=== PATIENT | male | born 1980 | race Caucasian/White ===

== ENCOUNTER 2018-05-08 18:22 | Emergency (ER) | payer OTHER ==
[2018-05-08 18:35] VITALS: TEMP 98.9; BMI 37.3
[2018-05-08] MEDS ORDERED: SODIUM CHLORIDE 1,000 ML IV STA (18:42)
[2018-05-08] MEDS ORDERED: ONDANSETRON 4 MG/2 ML VIAL IVPUSH ONE (18:42)
--- NOTE | 2018-05-08 18:42 | PDOC ---
History of Present Illness - General Exam Limitations: No Limitations - History of Present Illness Initial Comments: 05/08/18 19:10 The patient is a 37 year old male, with no significant past medical history, who presents to the emergency department with, nausea and vomiting. The patient reports 3 episodes of nonbloody emesis and 1 episode of bilious emesis. He reports positional bilateral flank pain intermittently changing from his left to right side worsening on the right side with associated epigastric pain. He denies any worsening or alleviating factors. He describes his bowel movement as hard and pasty usually followed by an episode of emesis. He reports associated chills. He took an Funmi [place], without relief. He denies any recent fevers, headache or dizziness. He denies any recent diarrhea or constipation. He denies any recent chest pain or shortness of breath. He denies any recent dysuria, frequency, urgency or hematuria. Allergies: NKA Past surgical history: None reported. Social history: Social alcohol usage. Nonsmoker. Denies recreational drug use. Primary Care Physician: Dr. Barger <Fredo Ibrahim - Last Filed: 05/08/18 19:12> - General History Source: Patient <Stephani Brady Krissy - Last Filed: 05/08/18 19:22> - General Chief Complaint: Nausea/Vomiting Stated Complaint: VOMITING, BLOATING Time Seen by Provider: 05/08/18 18:26 Past History <Fredo Ibrahim - Last Filed: 05/08/18 19:12> - Past Medical History COPD: No - Suicide/Smoking/Psychosocial Hx Smoking History: Never smoked Hx Alcohol Use: Yes (SOCIAL) Drug/Substance Use Hx: No Substance Use Type: None <Stephani Brady - Last Filed: 05/08/18 19:22> - Past Medical History Allergies/Adverse Reactions: Allergies Allergy/AdvReac Type Severity Reaction Status Date / Time No Known Allergies Allergy Verified 05/08/18 18:24 Home Medications: Ambulatory Orders Dextroamphetamine/Amphetamine [Adderall Xr 15 mg Capsule] 15 mg PO DAILY Review of Systems - Review of Systems Comments:: 05/08/18 19:10 GENERAL/CONSTITUTIONAL: No fever.. No weakness. no sweats. +chills HEAD, EYES, EARS, NOSE AND THROAT: No sore throat or mouth pain. No difficulty swallowing.. No congestion. CARDIOVASCULAR: No chest pain RESPIRATORY: No SOB, cough or congestion GASTROINTESTINAL +Nausea and vomiting. +Epigastric pain. No diarrhea or constipation. No bloody stools. GENITOURINARY: +Bilateral flank pain. No hematuria, dysuria, frequency, urgency or other changes. MUSCULOSKELETAL: No joint or muscle swelling or pain. No neck or back pain. SKIN: No rash or changes in skin color or lesions. NEUROLOGIC: No headache, vertigo, loss of consciousness, or change in strength/ sensation. No gait instability. ALLERGIC/IMMUNOLOGIC: No allergies All other systems reviewed and negative, or as documented in HPI. <Fredo Ibrahim - Last Filed: 05/08/18 19:12> *Physical Exam - Vital Signs Last Vital Signs Temp Pulse Resp BP Pulse Ox 98.9 F 69 18 164/107 97 05/08/18 18:24 05/08/18 18:45 05/08/18 18:45 05/08/18 18:45 05/08/18 18:45 - Physical Exam Comments: 05/08/18 19:10 General: Well appearing, awake and alert, NAD. HEENT: NCAT, PERRL, EOMI, clear conjunctiva, anicteric, moist mucus membranes, clear oropharynx, no oral lesions.. Neck: neck supple, FROM Resp: CTAB, normal and even respirations, no respiratory distress CVS: RRR, 2+ peripheral pulses throughout, no peripheral edema Abdomen: soft, obese, +epigastric and bilateral flankTTP. +Harper's sign. no peritoneal signs. Back: nontender, normal inspection and ROM MSK: no edema, OG x4, ROM intact. No clubbing or cyanosis. normal bulk and tone. Neuro: alert, oriented appropriately Skin: warm and well perfused, cap refill <2 sec, normal color; no rash <Fredo Ibrahim - Last Filed: 05/08/18 19:12> - Vital Signs Last Vital Signs Temp Pulse Resp BP Pulse Ox 98.9 F 68 18 163/105 97 05/08/18 18:24 05/08/18 18:24 05/08/18 18:24 05/08/18 18:24 05/08/18 18:24 <Stephani Brady - Last Filed: 05/08/18 19:22> ED Treatment Course - Medications Given in the ED: ED Medications Discontinued Medications Generic Name Dose Route Start Last Admin Trade Name Hel[place] PRN Reason Stop Dose Admin Al Hydroxide/Mg Hydroxide 30 ml 05/08/18 18:45 05/08/18 19:00 Mylanta Oral Suspension - PO 05/08/18 18:46 30 ml ONCE ONE Administration Ondansetron HCl 4 mg 05/08/18 18:42 05/08/18 18:50 Zofran Injection IVPUSH 05/08/18 18:43 4 mg ONCE ONE Administration <AnibalFredo chawla - Last Filed: 05/08/18 19:12> - LABORATORY CBC & Chemistry Diagram: 05/08/18 18:45 05/08/18 18:45 <Stephani Brady - Last Filed: 05/08/18 19:22> Medical Decision Making - Medical Decision Making 05/08/18 19:00 A portion of this note was documented by scribe services under my direction. I have reviewed the details of the note, within reason, and agree with the documentation with the following case summary and management plan written by me. Tony He 37 YOM with no medical history presenting with n/v x 4 episodes today a/w epigastric RUQ and flank pain (worse on right), present w/ constipation x 4 days but worse today. no precipitating factors. no fevers or chills; no abdominal surgeries. DDx abdominal pain: GERD, PUD, esophageal spasm, pancreatitis, hepatitis, constipation, colitis, gastroenteritis, cholecystitis, renal colic, hernia, appendicitis, diverticulitis; clinically doubt appy or diverticulitis, as no lower abdominal tenderness. also doubt /testicular pathology as no lower sx. Vital signs wnl, afebrile. Well appearing, mildly hypertensive, likely from n/v/ abd cramps. Plan: CBC, CMP, lipase, UA. RUQ and Renal US to r/o biliary pathology and hydro/ renal colic respectively. Given dose of pepcid, IVF and maalox, low dose morphine. Continue to monitor closely. discussed plan with pt for workup Signed out to Dr. Nassef pending labs, reeval and imaging results 05/08/18 19:17 05/08/18 19:19 05/08/18 19:22 <Stephani Brady - Last Filed: 05/08/18 19:22> *DC/Admit/Observation/Transfer - Attestations Scribe Attestion: 05/08/18 19:11 Documentation prepared by Fredo Ibrahim, acting as medical hospital sales for Stephani Brady MD. <Fredo Ibrahim - Last Filed: 05/08/18 19:12> <Stephani Brady - Last Filed: 05/08/18 19:22> Diagnosis at time of Disposition: Abdominal pain Qualifiers: Abdominal location: upper abdomen, unspecified Qualified Code(s): R10.10 - Upper abdominal pain, unspecified - Discharge Dispostion Condition at time of disposition: Good - Referrals Referrals: Karuna Barger [Primary Care Provider] - - Patient Instructions - Post Discharge Activity
[2018-05-08] MEDS ORDERED: FAMOTIDINE 20 MG/50 ML IVPB 20 MG/50 ML MG IVPB ONE ×2 (18:45→18:54)
[2018-05-08] MEDS ORDERED: MAG HYDROX/AL HYDROX/SIMETH 30 ML UNIT-DOSE CUP PO ONE ×2 (18:45→22:37)
[2018-05-08] MEDS ORDERED: MAG HYDROX/AL HYDROX/SIMETH 30 ML UNIT-DOSE CUP ONE ×2 (18:54→22:47)
[2018-05-08] MEDS ORDERED: ONDANSETRON 4 MG/2 ML VIAL ONE (18:54)
[2018-05-08] MEDS ORDERED: morphine CARPU-JECT 4 MG/1 ML DISP.SYRIN IVPUSH ONE (19:13)
[2018-05-08 19:17] LABS: BASO % 0.2 % (0-2.0); EOS % 0.2 % (0-4.5); HEMOGLOBIN 16.5 GM/dl (11.7-16.9); LYMPH % 14.8 % (8-40); MCH 30.1 pg (25.7-33.7); MCHC 33.6 g/dl (32.0-35.9); MEAN CELL VOLUME 89.5 fl (80-96); MEAN PLT VOLUME 9.9 fl (7.5-11.1); MONO % 6.4 % (3.8-10.2); NEUT % 78.4 % (42.8-82.8); PLATELET COUNT 254 K/MM3 (134-434); RBC 5.47 M/mm3 (4.00-5.60); RDW 12.1 % (11.9-15.9); WHITE BLOOD COUNT 9.8 K/mm3 (4.0-10.8)
[2018-05-08] MEDS ORDERED: morphine SULFATE 4 MG/ML VIAL ONE (19:18)
[2018-05-08 19:30] LABS: ALBUMIN 4.4 g/dl (3.5-5.0); ALK PHOS 63 U/L (32-92); ANION GAP 7 (8-16); BILIRUBIN,TOTAL 0.5 mg/dl (0.2-1.0); BLOOD UREA NITROGEN 8 mg/dl (7-18); CALCIUM 9.3 mg/dl (8.4-10.2); CHLORIDE 101 mmol/L (98-107); CO2 27 mmol/L (22-28); CREATININE 0.9 mg/dl (0.6-1.3); GLUCOSE,RANDOM 104 mg/dl (74-106); POTASSIUM 4.2 mmol/L (3.5-5.1); SGOT/AST 32 U/L (10-42); SGPT/ALT 44 U/L (10-40); SODIUM 135 mmol/L (136-145); TOT PROT 7.9 g/dl (6.4-8.3)
[2018-05-08 20:13] LABS: PH,URINE 7.5 (4.5-8); URINE APPEARANCE Clear; URINE BILIRUBIN Negative (NEGATIVE); URINE COLOR Yellow; URINE GLUCOSE (UA) Negative (NEGATIVE); URINE KETONE Negative (NEGATIVE); URINE LEUK ESTERASE Negative (NEGATIVE); URINE NITRITE Negative (NEGATIVE); URINE PROTEIN 1+ (NEGATIVE)
[2018-05-08 20:25] LABS: AMORP PHOS MODERATE /hpf (NONE SEEN); URINE BACTERIA FEW /hpf (NEGATIVE); URINE RBC 0-2 /hpf (0-3); URINE WBC 0-1 (0-2)
[2018-05-08 21:04] LABS: LIPASE 158 U/L (73-393)
[2018-05-08 22:29] VITALS: BP 136/92; PULSE 67
--- NOTE | 2018-05-08 22:41 | PDOC ---
*Physical Exam - Vital Signs Last Vital Signs Temp Pulse Resp BP Pulse Ox 98.9 F 67 18 136/92 100 05/08/18 18:24 05/08/18 22:28 05/08/18 22:28 05/08/18 22:28 05/08/18 22:28 ED Treatment Course - LABORATORY CBC & Chemistry Diagram: 05/08/18 18:45 05/08/18 18:45 - ADDITIONAL ORDERS Additional order review: Laboratory Results 05/08/18 05/08/18 19:57 18:45 Sodium 135 L Potassium 4.2 Chloride 101 Carbon Dioxide 27 Anion Gap 7 L BUN 8 Creatinine 0.9 Creat Clearance w eGFR > 60 Random Glucose 104 Calcium 9.3 Total Bilirubin 0.5 AST 32 ALT 44 H Alkaline Phosphatase 63 Total Protein 7.9 Albumin 4.4 Lipase 158 Urine Color Yellow Urine Appearance Clear Urine pH 7.5 Ur Specific [place] 1.020 Urine Protein 1+ H Urine Glucose (UA) Negative Urine Ketones Negative Urine Blood Negative Urine Nitrite Negative Urine Bilirubin Negative Urine Urobilinogen 1.0 Ur Leukocyte Esterase Negative Urine RBC 0-2 Urine WBC 0-1 Amorphous Phosphates Moderate Urine Bacteria Few 05/08/18 18:45 RBC 5.47 MCV 89.5 MCHC 33.6 RDW 12.1 MPV 9.9 Neutrophils % 78.4 Lymphocytes % 14.8 Monocytes % 6.4 Eosinophils % 0.2 Basophils % 0.2 - RADIOLOGY Radiology Studies Ordered: Category Date Time Status ABDOMEN US [US] Stat Ultrasound 05/08/18 19:52 Completed - Medications Given in the ED: ED Medications Discontinued Medications Generic Name Dose Route Start Last Admin Trade Name Helena PRN Reason Stop Dose Admin Al Hydroxide/Mg Hydroxide 30 ml 05/08/18 18:45 05/08/18 19:00 Mylanta Oral Suspension - PO 05/08/18 18:46 30 ml ONCE ONE Administration Sodium Chloride 1,000 mls @ 1,000 mls/hr 05/08/18 18:42 05/08/18 18:45 Normal Saline - IV 05/08/18 19:41 1,000 mls/hr ASDIR STA Administration Famotidine/Sodium Chloride 20 mg in 50 mls @ 100 mls/hr 05/08/18 18:45 18:55 Pepcid 20 Mg Premixed Ivpb - IVPB 05/08/18 19:14 100 mls/hr ONCE ONE Administration Morphine Sulfate 4 mg 05/08/18 19:13 05/08/18 19:20 Morphine Injection - IVPUSH 05/08/18 19:14 4 mg ONCE ONE Administration Ondansetron HCl 4 mg 05/08/18 18:42 05/08/18 18:50 Zofran Injection IVPUSH 05/08/18 18:43 4 mg ONCE ONE Administration Medical Decision Making - Medical Decision Making 05/08/18 22:37 Care received at 1900 Briefly, patient presents to the emergency Department with epigastric pain associated with nausea, vomiting as well as bilateral flank pain. Vitals initially with hypertension, however blood pressure has improved without intervention. Workup thus far reveals a very mildly elevated LFTs and ultrasound with a normal gallbladder and fatty liver. On reevaluation, abdominal exam is benign, patient has no tenderness palpation. Patient is tolerating PO. Complains of some persistent burning epigastric pain, given Maalox. Likey gastroenteritis vs gastritis. Advised patient to drink plenty of fluids and follow up with his primary doctor in 1-2 days. Patient in agreement with plan. I discussed the physical exam findings, ancillary test results and final diagnoses with the patient. I answered all of the patient's questions. The patient was satisfied with the care received and felt comfortable with the discharge plan and treatment plan. The patient will call their primary care physician within 24 hours to arrange follow-up and will return to the Emergency Department with any new, persistent or worsening symptoms. *DC/Admit/Observation/Transfer Diagnosis at time of Disposition: Abdominal pain Qualifiers: Abdominal location: upper abdomen, unspecified Qualified Code(s): R10.10 - Upper abdominal pain, unspecified - Discharge Dispostion Disposition: HOME Condition at time of disposition: Good Decision to Admit order: No - Referrals Referrals: Karuna Barger [Primary Care Provider] - - Patient Instructions Printed Discharge Instructions: DI for Nausea -- Adult, DI for Vomiting -- Adult Additional Instructions: As discussed, follow-up with her primary doctor in 1-2 days. Take Zofran as needed for nausea. Drink plenty of fluids and stay hydrated. Return to the emergency department if you have any new, worsening or concerning symptoms. - Post Discharge Activity - Attestations Physician Attestion: 07/25/18 22:41 I, Dr. Yesi Carlson MD, attest that this document has been prepared under my direction and personally reviewed by me in its entirety. I further attest, that it accurately reflects all work, treatment, procedures and medical decision -making performed by me.
== END 2018-05-08 22:55 | disposition home or self-care (01) ==
LOC: FER 18:22
PROC: 3E033GC Introduction of Other Therapeutic Substance into Peripheral Vein, Percutaneous Approach (ICD-10-PCS; principal; 2018-05-08)
PROC: 3E033NZ Introduction of Analgesics, Hypnotics, Sedatives into Peripheral Vein, Percutaneous Approach (ICD-10-PCS; 2018-05-08)
PROC: 3E0337Z Introduction of Electrolytic and Water Balance Substance into Peripheral Vein, Percutaneous Approach (ICD-10-PCS; 2018-05-08)
DX: R10.10 Upper abdominal pain, unspecified (principal)
CPT/HCPCS: 36415; 76700-TC; 80053; 81003; 81015; 83690; 85025; 99283-25; J7030

== ENCOUNTER 2019-11-17 07:39 | Emergency (ER) | payer OTHER ==
[2019-11-17 07:50] VITALS: BP 146/95; PULSE 87; TEMP 98.3; BMI 35.6
--- NOTE | 2019-11-17 08:03 | PDOC ---
History of Present Illness - General Chief Complaint: Pain Stated Complaint: RIGHT SIDED BACK PAIN BLOATED Time Seen by Provider: 11/17/19 07:49 - History of Present Illness Initial Comments: 11/17/19 08:41 Chief complaint: Abdominal pain HPI: Patient awoke in the middle of the night with right upper quadrant abdominal pain radiating around the lower rib cage to the back. There was associated nausea. He vomited once, undigested food, no blood. Had a normal bowel movement. No blood or melena. Continues to have right upper quadrant pain and nausea. Review of systems: Denies fever/chills, headache, URI symptoms, sore throat, cough, chest pain, shortness of breath, hematemesis, melena, bloody stool, visual or focal neurologic symptoms, unsteadiness of gait, lightheadedness, dizziness, vertigo. Remainder of systems reviewed and negative Past medical history: Frequent dyspepsia, for which he takes Mylanta. Treated for this several times in the ER. Gallbladder disease was considered, but ultrasounds have been negative. Obesity. Otherwise no medical or surgical problems and no medications except for Mylanta. Social history: Non-smoker, occasional social alcohol, had 3 beers last night, no nonprescription drugs. 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 Family history: Reviewed and noncontributory Physical exam: Alert and oriented moderately obese mild to moderate right upper quadrant pain mild nausea, no retching. Afebrile, vital signs normal No pallor or icterus. HEENT normal Neck supple without bruit mass or nodes Lungs clear, full breath sounds bilaterally. CV S1-S2 normal without murmur rub or gallop pulses full and symmetric no JVD or edema no bruits regular rate Abdomen nondistended. Bowel sounds normal. Soft without mass or organomegaly. There is mild to moderate tenderness in the right upper quadrant and the suggestion of a positive Harper sign. There is no guarding or rebound. There is no CVAT. There is no lower quadrant tenderness. Extremities no CCE Skin clear, no rash, adequate turgor and wet mucous membranes Neurological intact Impression: Possibilities include biliary colic, gastroenteritis, dyspepsia/ gastritis. Less likely kidney stone, pancreatitis, intestinal obstruction, musculoskeletal. Plan: CBC, chemistries, lipase, urinalysis, symptomatic treatment and observation. Further evaluation and treatment depending on results. Past History - Past Medical History Allergies/Adverse Reactions: Allergies Allergy/AdvReac Type Severity Reaction Status Date / Time No Known Allergies Allergy Verified 11/17/19 07:41 Home Medications: Ambulatory Orders NK [No Known Home Medication] 11/17/19 COPD: No HTN: Yes (NO MEDS) - Psycho Social/Smoking Cessation Hx Smoking History: Never smoked Information on smoking cessation initiated: No Hx Alcohol Use: Yes (SOCIAL) Drug/Substance Use Hx: No Substance Use Type: None *Physical Exam - Vital Signs Last Vital Signs Temp Pulse Resp BP Pulse Ox 98.3 F 87 16 146/95 98 11/17/19 07:40 11/17/19 07:40 11/17/19 07:40 11/17/19 07:40 11/17/19 07:40 ED Treatment Course - LABORATORY CBC & Chemistry Diagram: 11/17/19 08:15 11/17/19 08:15 Medical Decision Making - Medical Decision Making 11/17/19 11:20 Ultrasound does not show gallstones. There is mild thickening of the gallbladder wall but without signs of inflammation. Labs are normal. No elevation of bilirubin or liver enzymes. Lipase is normal. Most likely diagnosis is aggravation of dyspepsia/gastritis. Back pain may be musculoskeletal, since the patient is overweight and the pain seems to be more prominent with movement of the torso. Advised to continue Mylanta 3-4 times daily for approximately 1 week. If symptoms persist, consult city jailer to consider endoscopy. Patient understands and agrees. Also rest and heat for the back, along with weight loss and exercise. Fully ambulatory, pain resolved at discharge to follow-up as directed. Discharge - Discharge Information Problems reviewed: Yes Clinical Impression/Diagnosis: Gastritis Qualifiers: Gastritis type: unspecified gastritis Chronicity: chronic Gastritis bleeding: without bleeding Qualified Code(s): K29.50 - Unspecified chronic gastritis without bleeding Condition: Improved Disposition: HOME - Admission No - Follow up/Referral Referrals: Rehan Brown MD [Staff Physician] - - Patient Discharge Instructions Patient Printed Discharge Instructions: DI for Dyspepsia, Thoracic Back Pain Additional Instructions: Weight loss. Avoid fatty or spicy foods, and large meals. Exercise. Mylanta 3 -4 times daily before meals for approximately 1 week. In case the back pain is musculoskeletal, try heat, massage, and Tylenol. Consider referral to city jailer for further evaluation and treatment if symptoms persist. This might involve upper endoscopy. Return to ER if symptoms worsen. - Post Discharge Activity Work/Back to School Note: Back to Work
[2019-11-17] MEDS ORDERED: SODIUM CHLORIDE 1,000 ML IV STA (08:04)
[2019-11-17] MEDS ORDERED: ONDANSETRON 4 MG/2 ML VIAL IVPB ONE (08:04)
[2019-11-17] MEDS ORDERED: FAMOTIDINE 20 MG/50 ML IVPB 20 MG/50 ML MG IVPB ONE ×2 (08:04→08:18)
[2019-11-17] MEDS ORDERED: ONDANSETRON 4 MG/2 ML VIAL ONE (08:18)
[2019-11-17 08:42] LABS: BASO % 0.3 % (0-2.0); EOS % 1.3 % (0-4.5); HEMATOCRIT 43.5 % (35.4-49); HEMOGLOBIN 14.4 GM/dl (11.7-16.9); LYMPH % 22.9 % (8-40); MCH 29.4 pg (25.7-33.7); MCHC 33.1 g/dl (32.0-35.9); MEAN CELL VOLUME 88.8 fl (80-96); MEAN PLT VOLUME 10.6 fl (7.5-11.1); MONO % 7.2 % (3.8-10.2); NEUT % 68.3 % (42.8-82.8); PLATELET COUNT 248 K/MM3 (134-434); WHITE BLOOD COUNT 8.7 K/mm3 (4.0-10.8)
[2019-11-17 08:46] LABS: ALBUMIN 3.7 g/dl (3.4-5.0); BILIRUBIN,TOTAL 0.5 mg/dl (0.2-1); CALCIUM 8.9 mg/dl (8.5-10); CREATININE 0.8 mg/dl (0.55-1.3); POTASSIUM 4.2 mmol/L (3.5-5.1); TOT PROT 6.7 g/dl (6.4-8.2)
[2019-11-17 09:32] LABS: EPITHELIAL CELLS RARE /hpf
== END 2019-11-17 11:34 | disposition home or self-care (01) ==
LOC: FER 07:39
PROC: 3E033GC Introduction of Other Therapeutic Substance into Peripheral Vein, Percutaneous Approach (ICD-10-PCS; principal; 2019-11-17)
DX: K29.50 Unspecified chronic gastritis without bleeding (principal); I10 Essential (primary) hypertension
CPT/HCPCS: 36415; 76705-TC; 80053; 81003; 81015; 83690; 85025; 99283-25; J7030

== ENCOUNTER 2020-10-28 13:13 | Inpatient (IN) | payer OTHER ==
[2020-10-28] MEDS ORDERED: DEXAMETHASONE SOD PHOSPHATE 10 MG/1 ML VIAL IVPUSH ONE (13:54)
[2020-10-28 14:07] LABS: ACTIVATED PTT 27.2 SECONDS (25.2-36.5)
[2020-10-28 14:10] LABS: ALBUMIN 3.5 g/dl (3.4-5.0); BILIRUBIN,DIRECT 0.2 mg/dL (0.0-0.2); BILIRUBIN,TOTAL 1.1 mg/dl (0.2-1); CALCIUM 8.3 mg/dl (8.5-10); CREATININE 1.1 mg/dl (0.55-1.3); TOT PROT 7.1 g/dl (6.4-8.2)
[2020-10-28 14:11] LABS: INR 1.28 (0.82-1.09); PROTHROMBIN TIME (PATIENT) 14.1 SEC (10.2-13.0)
[2020-10-28] MEDS ORDERED: DEXAMETHASONE SOD PHOSPHATE 10 MG/1 ML VIAL ONE (14:20)
[2020-10-28] MEDS ORDERED: LACTATED RINGERS SOLUTION 1000 ML INFUS.BAG IV STA ×2 (14:37→17:58)
[2020-10-28] MEDS ORDERED: FAMOTIDINE 20 MG/50 ML IVPB 20 MG/50 ML MG IVPB ONE ×2 (14:37→16:10)
[2020-10-28] MEDS ORDERED: ONDANSETRON 4 MG/2 ML VIAL IVPUSH ONE (14:38)
[2020-10-28 14:40] LABS: VENOUS BASE EXCESS 2.4 mmol/L (-2-2); VENOUS PCO2 41.4 mmHg (38-52); VENOUS PH 7.431 (7.310-7.410)
[2020-10-28 15:34] LABS: EPITHELIAL CELLS FEW /hpf
[2020-10-28] MEDS ORDERED: ONDANSETRON 4 MG/2 ML VIAL ONE (16:11)
[2020-10-28 16:23] LABS: BASO % 3.5 % (0-2.0); EOS % 0.1 % (0-4.5); HEMATOCRIT 45.3 % (35.4-49); HEMOGLOBIN 15.4 GM/dl (11.7-16.9); LYMPH % 26.3 % (8-40); MCH 29.6 pg (25.7-33.7); MEAN CELL VOLUME 87.1 fl (80-96); MEAN PLT VOLUME 9.9 fl (7.5-11.1); MONO % 8.4 % (3.8-10.2); NEUT % 61.7 % (42.8-82.8); PLATELET COUNT 196 K/MM3 (134-434); RDW 12.6 % (11.9-15.9); WHITE BLOOD COUNT 6.5 K/mm3 (4.0-10.8)
[2020-10-28] MEDS ORDERED: SODIUM CHLORIDE 0.9% 500 ML INFUS.BAG IV ONE (17:59)
[2020-10-28] MEDS ORDERED: ACETAMINOPHEN INJECTION 100 ML IVPB ONE (18:00)
[2020-10-28] MEDS: ACETAMINOPHEN 1000 MG/100 ML VIAL (NON FORMULARY) IVPB PRN (18:00)
[2020-10-29 08:14] LABS: BASO % 0.1 % (0-2.0); HEMOGLOBIN 13.5 GM/dL (11.7-16.9); LYMPH % 30.3 % (8-40); MCH 29.2 pg (25.7-33.7); MEAN CELL VOLUME 88.7 fl (80-96); MEAN PLT VOLUME 9.9 fl (7.5-11.1); MONO % 10.2 % (3.8-10.2); NEUT % 59.4 % (42.8-82.8); PLATELET COUNT 195 K/MM3 (134-434); RBC 4.62 M/mm3 (4.00-5.60); RDW 13.9 % (11.9-15.9); WHITE BLOOD COUNT 3.5 K/mm3 (4.0-10.0)
[2020-10-29 08:57] LABS: POTASSIUM 4.4 mmol/L (3.5-5.1)
[2020-10-29 09:11] LABS: ALBUMIN 2.8 g/dl (3.4-5.0)
[2020-10-29 09:14] LABS: BILIRUBIN,TOTAL 0.9 mg/dL (0.2-1); BLOOD UREA NITROGEN 12.6 mg/dL (7-18); CREATININE 0.8 mg/dL (0.55-1.3); MAGNESIUM 2.3 mg/dL (1.8-2.4); PHOSPHOROUS 3.3 mg/dL (2.5-4.9); TOT PROT 6.1 g/dl (6.4-8.2)
[2020-10-29] MEDS ORDERED: cefTRIAXone SODIUM 1 GM VIAL ONE (09:53)
[2020-10-29] MEDS ORDERED: DEXTROSE 5%-WATER - 50 ML IVPB ONE (09:53)
[2020-10-29] MEDS: CEFTRIAXONE 1 GM in DEXTROSE 5%-WATER - 50 ML IVPB SCH (09:58)
[2020-10-29] MEDS: ACETAMINOPHEN 1000 MG/100 ML VIAL (NON FORMULARY) IVPB PRN ×2 (09:58→20:23)
[2020-10-29] MEDS ORDERED: ENOXAPARIN NA (PORCINE) 40 MG/0.4 ML DISP.SYRIN SQ SCH (10:00)
[2020-10-29] MEDS: ENOXAPARIN NA (PORCINE) 100 MG/1 ML DISP.SYRIN SQ SCH ×2 (10:14→21:46)
[2020-10-29] MEDS: LACTATED RINGERS SOLUTION 1,000 ML/1,000 ML INFUS.BAG IV SCH ×2 (10:15→21:47)
[2020-10-29] MEDS ORDERED: CHOLECALCIFEROL (VIT D3) 1,000 UNIT (25 MCG) TABLET PO ONE (13:03)
[2020-10-29] MEDS: FLU VACCINE (FLULAVAL) PF 60 MCG/0.5 ML SYRINGE 2020-2021 IM ONE ×2 (13:42→13:54)
[2020-10-29] MEDS: ZINC SULFATE 220 MG CAPSULE (FP) PO SCH (13:44)
[2020-10-29] MEDS: ASCORBIC ACID 500 MG TABLET (FP) PO SCH ×2 (13:44→21:46)
[2020-10-29] MEDS: guaiFENesin 200 MG/10 ML 10 ML UNIT-DOSE CUPS PO PRN ×2 (13:56→21:48)
[2020-10-29] MEDS ORDERED: DEXAMETHASONE SOD PHOSPHATE 10 MG/1 ML VIAL IVPUSH ONE (19:08)
[2020-10-29] MEDS: FAMOTIDINE 20 MG TABLET PO SCH (21:46)
[2020-10-30] MEDS: guaiFENesin 200 MG/10 ML 10 ML UNIT-DOSE CUPS PO PRN ×2 (07:01→11:02)
[2020-10-30 08:54] LABS: HEMATOCRIT 40.3 % (35.4-49); HEMOGLOBIN 13.3 GM/dL (11.7-16.9); MCH 29.4 pg (25.7-33.7); MCHC 32.9 g/dl (32.0-35.9); MEAN CELL VOLUME 89.4 fl (80-96); MEAN PLT VOLUME 10.6 fl (7.5-11.1); PLATELET COUNT 199 K/MM3 (134-434); RBC 4.51 M/mm3 (4.00-5.60); WHITE BLOOD COUNT 6.3 K/mm3 (4.0-10.0)
[2020-10-30 09:08] LABS: POTASSIUM 4.3 mmol/L (3.5-5.1)
[2020-10-30 09:10] LABS: ALBUMIN 2.8 g/dl (3.4-5.0); BLOOD UREA NITROGEN 13.8 mg/dL (7-18); MAGNESIUM 2.3 mg/dL (1.8-2.4)
[2020-10-30 09:12] LABS: BILIRUBIN,TOTAL 0.8 mg/dL (0.2-1); CREATININE 0.9 mg/dL (0.55-1.3); PHOSPHOROUS 4.3 mg/dL (2.5-4.9); TOT PROT 6.3 g/dl (6.4-8.2)
[2020-10-30] MEDS ORDERED: cefTRIAXone SODIUM 1 GM VIAL ONE (09:35)
[2020-10-30] MEDS ORDERED: DEXTROSE 5%-WATER - 50 ML IVPB ONE (09:35)
[2020-10-30] MEDS: FAMOTIDINE 20 MG TABLET PO SCH ×2 (09:50→21:30)
[2020-10-30] MEDS: ASCORBIC ACID 500 MG TABLET (FP) PO SCH ×2 (09:50→21:30)
[2020-10-30] MEDS: ZINC SULFATE 220 MG CAPSULE (FP) PO SCH (09:50)
[2020-10-30] MEDS: CEFTRIAXONE 1 GM in DEXTROSE 5%-WATER - 50 ML IVPB SCH (09:50)
[2020-10-30] MEDS: ENOXAPARIN NA (PORCINE) 100 MG/1 ML DISP.SYRIN SQ SCH (09:50)
[2020-10-30] MEDS: SODIUM CHLORIDE 1,000 ML IV SCH (09:51)
[2020-10-30 10:11] LABS: ERYTHROCYTE SEDIMENTATION RATE 49 mm/hr (0-10)
[2020-10-30] MEDS: DEXAMETHASONE SOD PHOSPHATE 4 MG/1 ML VIAL IVPUSH SCH (14:41)
[2020-10-30] MEDS: ACETAMINOPHEN 1000 MG/100 ML VIAL (NON FORMULARY) IVPB PRN (14:41)
[2020-10-30] MEDS: guaiFENesin/CODEINE 10 ML UNIT-DOSE CUPS PO PRN (20:14)
[2020-10-30] MEDS: ENOXAPARIN NA (PORCINE) 80 MG/0.8 ML DISP.SYRIN SQ SCH (21:29)
[2020-10-30] MEDS ORDERED: MELATONIN 5 MG TABLETS PO ONE (23:51)
[2020-10-31] MEDS: SODIUM CHLORIDE 1,000 ML IV SCH ×2 (06:32→10:10)
[2020-10-31 07:41] LABS: BASO % 0.1 % (0-2.0); HEMATOCRIT 38.7 % (35.4-49); LYMPH % 9.9 % (8-40); MCH 29.5 pg (25.7-33.7); MCHC 33.5 g/dl (32.0-35.9); MEAN CELL VOLUME 88.2 fl (80-96); MEAN PLT VOLUME 9.9 fl (7.5-11.1); MONO % 4.4 % (3.8-10.2); NEUT % 85.6 % (42.8-82.8); PLATELET COUNT 219 K/MM3 (134-434); RBC 4.39 M/mm3 (4.00-5.60); RDW 13.7 % (11.9-15.9); WHITE BLOOD COUNT 8.2 K/mm3 (4.0-10.0)
[2020-10-31 07:56] LABS: POTASSIUM 4.8 mmol/L (3.5-5.1)
[2020-10-31 07:58] LABS: ALBUMIN 2.6 g/dl (3.4-5.0); CALCIUM 8.3 mg/dL (8.5-10.1)
[2020-10-31 07:59] LABS: BLOOD UREA NITROGEN 13.3 mg/dL (7-18)
[2020-10-31 08:01] LABS: CREATININE 0.8 mg/dL (0.55-1.3)
[2020-10-31 08:03] LABS: BILIRUBIN,TOTAL 0.8 mg/dL (0.2-1)
[2020-10-31] MEDS ORDERED: cefTRIAXone SODIUM 1 GM VIAL ONE (09:13)
[2020-10-31] MEDS ORDERED: DEXTROSE 5%-WATER - 50 ML IVPB ONE (09:13)
[2020-10-31] MEDS: FAMOTIDINE 20 MG TABLET PO SCH ×2 (10:09→22:35)
[2020-10-31] MEDS: ZINC SULFATE 220 MG CAPSULE (FP) PO SCH (10:09)
[2020-10-31] MEDS: DEXAMETHASONE SOD PHOSPHATE 4 MG/1 ML VIAL IVPUSH SCH (10:09)
[2020-10-31] MEDS: ASCORBIC ACID 500 MG TABLET (FP) PO SCH ×2 (10:09→22:33)
[2020-10-31] MEDS: CEFTRIAXONE 1 GM in DEXTROSE 5%-WATER - 50 ML IVPB SCH (10:09)
[2020-10-31] MEDS: ENOXAPARIN NA (PORCINE) 80 MG/0.8 ML DISP.SYRIN SQ SCH ×2 (10:09→22:32)
[2020-10-31] MEDS: guaiFENesin/CODEINE 10 ML UNIT-DOSE CUPS PO PRN (10:11)
[2020-10-31] MEDS: AZITHROMYCIN IVPB 500 MG/250 ML BAG IVPB SCH (11:21)
[2020-10-31] MEDS ORDERED: guaiFENesin/CODEINE 10 ML UNIT-DOSE CUPS PO PRN (12:03)
[2020-10-31] MEDS: guaiFENesin/CODEINE 5 ML UNIT-DOSE CUPS PO SCH ×2 (15:34→17:48)
[2020-10-31] MEDS ORDERED: FUROSEMIDE 40 MG/4 ML INJECTABLE VIAL IVPUSH ONE (15:42)
[2020-10-31] MEDS: MORPHINE SULFATE 2 MG/ML VIAL IVPUSH PRN (16:48)
[2020-10-31] MEDS ORDERED: guaiFENesin/CODEINE 10 ML UNIT-DOSE CUPS PO SCH (22:00)
[2020-11-01] MEDS: guaiFENesin/CODEINE 5 ML UNIT-DOSE CUPS PO SCH ×2 (06:00→13:05)
[2020-11-01] MEDS ORDERED: cefTRIAXone SODIUM 1 GM VIAL ONE (08:20)
[2020-11-01] MEDS ORDERED: DEXTROSE 5%-WATER - 50 ML IVPB ONE (08:20)
[2020-11-01 08:35] LABS: BASO % 0.5 % (0-2.0); EOS % 0.1 % (0-4.5); HEMATOCRIT 40.4 % (35.4-49); HEMOGLOBIN 13.6 GM/dL (11.7-16.9); LYMPH % 17.6 % (8-40); MCH 29.8 pg (25.7-33.7); MCHC 33.6 g/dl (32.0-35.9); MEAN CELL VOLUME 88.6 fl (80-96); MONO % 3.6 % (3.8-10.2); NEUT % 78.2 % (42.8-82.8); PLATELET COUNT 306 K/MM3 (134-434); RBC 4.56 M/mm3 (4.00-5.60); RDW 13.6 % (11.9-15.9); WHITE BLOOD COUNT 13.3 K/mm3 (4.0-10.0)
[2020-11-01 08:51] LABS: POTASSIUM 4.4 mmol/L (3.5-5.1)
[2020-11-01 08:57] LABS: ALBUMIN 2.9 g/dl (3.4-5.0); CALCIUM 8.6 mg/dL (8.5-10.1)
[2020-11-01 08:58] LABS: BLOOD UREA NITROGEN 16.9 mg/dL (7-18)
[2020-11-01 09:01] LABS: BILIRUBIN,TOTAL 0.8 mg/dL (0.2-1); CREATININE 0.9 mg/dL (0.55-1.3); TOT PROT 6.9 g/dl (6.4-8.2)
[2020-11-01] MEDS: ASCORBIC ACID 500 MG TABLET (FP) PO SCH ×2 (10:17→21:31)
[2020-11-01] MEDS: DEXAMETHASONE SOD PHOSPHATE 4 MG/1 ML VIAL IVPUSH SCH (10:17)
[2020-11-01] MEDS: ENOXAPARIN NA (PORCINE) 80 MG/0.8 ML DISP.SYRIN SQ SCH ×2 (10:17→21:32)
[2020-11-01] MEDS: AZITHROMYCIN IVPB 500 MG/250 ML BAG IVPB SCH (10:18)
[2020-11-01] MEDS: FAMOTIDINE 20 MG TABLET PO SCH ×2 (10:18→21:31)
[2020-11-01] MEDS: CEFTRIAXONE 1 GM in DEXTROSE 5%-WATER - 50 ML IVPB SCH (10:18)
[2020-11-01] MEDS: ZINC SULFATE 220 MG CAPSULE (FP) PO SCH (10:18)
[2020-11-01] MEDS ORDERED: FUROSEMIDE 40 MG/4 ML INJECTABLE VIAL IVPUSH ONE (10:39)
[2020-11-01] MEDS: MORPHINE SULFATE 2 MG/ML VIAL IVPUSH PRN ×2 (10:40→23:03)
[2020-11-01] MEDS ORDERED: guaiFENesin/CODEINE 10 ML UNIT-DOSE CUPS PO ONE (20:24)
[2020-11-01 22:19] LABS: ARTERIAL BLD GAS O2 SATURATION 95.8 mmHg (95-98); ARTERIAL BLOOD GAS BASE EXCESS -0.3 mmol/L (-2-2); ARTERIAL BLOOD GAS PO2 73.4 mmHg (80-100); ARTERIAL BLOOD GAS pH 7.478 (7.350-7.450)
[2020-11-01 22:21] LABS: ALLENS TEST POSITIVE
[2020-11-02] MEDS ORDERED: guaiFENesin/CODEINE 10 ML UNIT-DOSE CUPS PO ONE (01:25)
[2020-11-02 07:39] LABS: HEMATOCRIT 39.6 % (35.4-49); HEMOGLOBIN 13.4 GM/dL (11.7-16.9); MCH 30.1 pg (25.7-33.7); MCHC 33.9 g/dl (32.0-35.9); MEAN CELL VOLUME 88.6 fl (80-96); MEAN PLT VOLUME 9.9 fl (7.5-11.1); PLATELET COUNT 276 K/MM3 (134-434); RBC 4.47 M/mm3 (4.00-5.60); RDW 13.5 % (11.9-15.9); WHITE BLOOD COUNT 10.5 K/mm3 (4.0-10.0)
[2020-11-02 07:53] LABS: POTASSIUM 4.8 mmol/L (3.5-5.1)
[2020-11-02 08:12] LABS: CALCIUM 8.8 mg/dL (8.5-10.1)
[2020-11-02 08:13] LABS: ALBUMIN 2.7 g/dl (3.4-5.0); BLOOD UREA NITROGEN 17.7 mg/dL (7-18); MAGNESIUM 2.5 mg/dL (1.8-2.4)
[2020-11-02 08:15] LABS: PHOSPHOROUS 3.5 mg/dL (2.5-4.9)
[2020-11-02 08:16] LABS: BILIRUBIN,TOTAL 0.8 mg/dL (0.2-1); CREATININE 0.7 mg/dL (0.55-1.3)
[2020-11-02 08:17] LABS: TOT PROT 6.6 g/dl (6.4-8.2)
[2020-11-02] MEDS ORDERED: cefTRIAXone SODIUM 1 GM VIAL ONE (10:07)
[2020-11-02] MEDS ORDERED: DEXTROSE 5%-WATER - 50 ML IVPB ONE (10:07)
[2020-11-02 10:13] LABS: ERYTHROCYTE SEDIMENTATION RATE 80 mm/hr (0-10)
[2020-11-02] MEDS: ASCORBIC ACID 500 MG TABLET (FP) PO SCH ×2 (10:53→21:35)
[2020-11-02] MEDS: FAMOTIDINE 20 MG TABLET PO SCH ×2 (10:54→21:35)
[2020-11-02] MEDS: DEXAMETHASONE SOD PHOSPHATE 4 MG/1 ML VIAL IVPUSH SCH (10:54)
[2020-11-02] MEDS: ENOXAPARIN NA (PORCINE) 80 MG/0.8 ML DISP.SYRIN SQ SCH ×2 (10:54→21:34)
[2020-11-02] MEDS: ZINC SULFATE 220 MG CAPSULE (FP) PO SCH (10:54)
[2020-11-02] MEDS: CEFTRIAXONE 1 GM in DEXTROSE 5%-WATER - 50 ML IVPB SCH (10:55)
[2020-11-02] MEDS: MORPHINE SULFATE 2 MG/ML VIAL IVPUSH PRN (10:55)
[2020-11-02] MEDS ORDERED: LORazepam 2 MG/ML SDV VIAL IVPUSH PRN (11:05)
[2020-11-02] MEDS ORDERED: MORPHINE SULFATE 2 MG/ML VIAL ONE (12:50)
[2020-11-02] MEDS ORDERED: MORPHINE SULFATE 2 MG/ML VIAL IVPUSH ONE ×2 (13:25→21:45)
[2020-11-02] MEDS ORDERED: ACETAMINOPHEN 1000 MG/100 ML VIAL (NON FORMULARY) IVPB ONE (18:41)
[2020-11-02] MEDS ORDERED: ACETAMINOPHEN 325 MG TABLET (FP) PO ONE (18:50)
[2020-11-02] MEDS ORDERED: guaiFENesin/CODEINE 10 ML UNIT-DOSE CUPS PO PRN ×2 (20:00→22:00)
[2020-11-02] MEDS: AZITHROMYCIN IVPB 500 MG/250 ML BAG IVPB SCH (20:40)
[2020-11-02] MEDS ORDERED: ALPRAZolam 1 MG TABLET PO ONE ×2 (21:52→22:00)
[2020-11-02] MEDS ORDERED: MELATONIN 5 MG TABLETS PO ONE ×2 (21:53→22:00)
[2020-11-03] MEDS ORDERED: LORazepam 2 MG/ML SDV VIAL IVPUSH ONE ×4 (00:22→23:02)
[2020-11-03] MEDS ORDERED: ACETAMINOPHEN 325 MG TABLET (FP) PO ONE (02:07)
[2020-11-03] MEDS: MORPHINE SULFATE 2 MG/ML VIAL IVPUSH PRN ×3 (05:21→21:14)
[2020-11-03 05:34] LABS: ARTERIAL BLD GAS O2 SATURATION 91.6 mmHg (95-98); ARTERIAL BLOOD GAS BASE EXCESS 1.3 mmol/L (-2-2); ARTERIAL BLOOD GAS PO2 56.7 mmHg (80-100); ARTERIAL BLOOD GAS pH 7.476 (7.350-7.450)
[2020-11-03 05:45] LABS: ALLENS TEST POSITIVE
[2020-11-03 08:02] LABS: HEMOGLOBIN 14.2 GM/dL (11.7-16.9); MCH 29.7 pg (25.7-33.7); MCHC 33.9 g/dl (32.0-35.9); MEAN CELL VOLUME 87.6 fl (80-96); PLATELET COUNT 397 K/MM3 (134-434); RBC 4.79 M/mm3 (4.00-5.60); RDW 13.5 % (11.9-15.9); WHITE BLOOD COUNT 17.7 K/mm3 (4.0-10.0)
[2020-11-03 08:04] LABS: BASO % 0.4 % (0-2.0); HEMATOCRIT 42.1 % (35.4-49); HEMOGLOBIN 14.2 GM/dL (11.7-16.9); MCH 29.5 pg (25.7-33.7); MCHC 33.7 g/dl (32.0-35.9); MEAN CELL VOLUME 87.4 fl (80-96); MEAN PLT VOLUME 10.1 fl (7.5-11.1); MONO % 3.1 % (3.8-10.2); NEUT % 84.5 % (42.8-82.8); PLATELET COUNT 410 K/MM3 (134-434); RBC 4.81 M/mm3 (4.00-5.60); RDW 13.2 % (11.9-15.9); WHITE BLOOD COUNT 17.9 K/mm3 (4.0-10.0)
[2020-11-03 08:13] LABS: CHLORIDE 102 mmol/L (98-107); POTASSIUM 4.6 mmol/L (3.5-5.1); SODIUM 137 mmol/L (136-145)
[2020-11-03 08:18] LABS: ANION GAP 12 MMOL/L (8-16); CO2 23 mmol/L (21-32)
[2020-11-03 08:19] LABS: CALCIUM 9.2 mg/dL (8.5-10.1); MAGNESIUM 1.9 mg/dL (1.8-2.4)
[2020-11-03 08:20] LABS: ALBUMIN 2.9 g/dl (3.4-5.0); BLOOD UREA NITROGEN 16.1 mg/dL (7-18); GLUCOSE,RANDOM 97 mg/dL (74-106)
[2020-11-03 08:21] LABS: CREATININE 0.8 mg/dL (0.55-1.3); SGOT/AST 75 U/L (15-37); SGPT/ALT 86 U/L (13-61)
[2020-11-03 08:23] LABS: PHOSPHOROUS 3.4 mg/dL (2.5-4.9)
[2020-11-03 08:24] LABS: BILIRUBIN,TOTAL 1.1 mg/dL (0.2-1)
[2020-11-03 08:25] LABS: ALK PHOS 69 U/L (45-117)
[2020-11-03] MEDS ORDERED: MORPHINE SULFATE 2 MG/ML VIAL IVPUSH ONE ×3 (08:29→12:53)
[2020-11-03] MEDS ORDERED: MORPHINE SULFATE 2 MG/ML VIAL IVPUSH PRN ×2 (08:31→12:53)
[2020-11-03 08:50] LABS: LDH 949 U/L (87-246)
[2020-11-03] MEDS ORDERED: cefTRIAXone SODIUM 1 GM VIAL ONE (09:10)
[2020-11-03] MEDS ORDERED: DEXTROSE 5%-WATER - 50 ML IVPB ONE (09:10)
[2020-11-03] MEDS: CEFTRIAXONE 1 GM in DEXTROSE 5%-WATER - 50 ML IVPB SCH (09:15)
[2020-11-03] MEDS: AZITHROMYCIN IVPB 500 MG/250 ML BAG IVPB SCH (09:15)
[2020-11-03] MEDS: ASCORBIC ACID 500 MG TABLET (FP) PO SCH ×2 (09:15→21:17)
[2020-11-03] MEDS: DEXAMETHASONE SOD PHOSPHATE 4 MG/1 ML VIAL IVPUSH SCH (09:15)
[2020-11-03] MEDS: ZINC SULFATE 220 MG CAPSULE (FP) PO SCH (09:15)
[2020-11-03] MEDS: ENOXAPARIN NA (PORCINE) 80 MG/0.8 ML DISP.SYRIN SQ SCH ×2 (09:17→21:51)
[2020-11-03] MEDS: FAMOTIDINE 20 MG TABLET PO SCH ×2 (09:17→21:17)
[2020-11-03 09:22] LABS: ERYTHROCYTE SEDIMENTATION RATE 72 mm/hr (0-10)
[2020-11-03] MEDS ORDERED: MORPHINE SULFATE 2 MG/ML VIAL ONE ×2 (11:43→12:01)
[2020-11-03] MEDS ORDERED: ACETAMINOPHEN INJECTION 100 ML IVPB ONE (12:02)
[2020-11-03] MEDS ORDERED: amLODIPine BESYLATE 5 MG TABLET (FP) PO SCH (18:30)
[2020-11-03] MEDS ORDERED: LORazepam 2 MG/ML SDV VIAL ONE (19:23)
[2020-11-03] MEDS: CHLORHEXIDINE GLUCONATE 4% CLEANSER FOR DECOLONIZATION TP SCH (21:12)
[2020-11-03] MEDS: MUPIROCIN 2% TOPICAL OINTMENT FOR DECOLONIZATION NS SCH (21:16)
[2020-11-03] MEDS ORDERED: SODIUM CHLORIDE NASAL SPRAY 44 ML BOTTLE NS PRN (21:44)
[2020-11-03] MEDS ORDERED: DEXAMETHASONE SOD PHOSPHATE 4 MG/1 ML VIAL IVPUSH ONE (22:00)
[2020-11-04] MEDS ORDERED: PROPOFOL 1,000,000 MCG/100 ML VIAL ONE (00:09)
[2020-11-04] MEDS ORDERED: ETOMIDATE 40 MG/20 ML VIAL IVPUSH ONE (00:21)
[2020-11-04] MEDS ORDERED: SUCCINYLCHOLINE CHLORIDE 200 MG/10 ML VIAL IVPUSH ONE (00:21)
[2020-11-04] MEDS ORDERED: FENTANYL NS IVPB 500 MCG/100 ML BAG IVPB ONE ×2 (00:39→18:12)
[2020-11-04] MEDS ORDERED: MIDAZOLAM 100 MG/100 ML MG IVPB SCH (01:00)
[2020-11-04 01:20] LABS: ARTERIAL BLOOD GAS BASE EXCESS -6.1 mmol/L (-2-2); ARTERIAL BLOOD GAS PO2 91.9 mmHg (80-100)
[2020-11-04 01:21] LABS: ALLENS TEST POSITIVE
[2020-11-04 01:22] LABS: VENT MODE A/C; VENT RATE 24
[2020-11-04 01:24] LABS: ARTERIAL BLOOD GAS pH 7.134 (7.350-7.450)
[2020-11-04] MEDS ORDERED: MIDAZOLAM 100 MG/100 ML MG IVPB ONE (01:30)
[2020-11-04] MEDS ORDERED: ACETAMINOPHEN 1000 MG/100 ML VIAL (NON FORMULARY) IVPB ONE (03:03)
[2020-11-04] MEDS ORDERED: ACETAMINOPHEN INJECTION 100 ML IVPB ONE (03:04)
[2020-11-04 03:35] LABS: ALLENS TEST POSITIVE
[2020-11-04 03:36] LABS: VENT MODE A/C; VENT RATE 29
[2020-11-04 03:45] LABS: ARTERIAL BLOOD GAS pH 7.173 (7.350-7.450)
[2020-11-04 03:46] LABS: ARTERIAL BLD GAS O2 SATURATION 91.2 mmHg (95-98); ARTERIAL BLOOD GAS BASE EXCESS -7.2 mmol/L (-2-2); ARTERIAL BLOOD GAS PO2 75.9 mmHg (80-100)
[2020-11-04 07:13] LABS: BASO % 0.2 % (0-2.0); HEMATOCRIT 42.8 % (35.4-49); HEMOGLOBIN 14.2 GM/dL (11.7-16.9); LYMPH % 3.2 % (8-40); MCH 29.4 pg (25.7-33.7); MCHC 33.1 g/dl (32.0-35.9); MEAN CELL VOLUME 88.9 fl (80-96); MEAN PLT VOLUME 10.2 fl (7.5-11.1); MONO % 3.9 % (3.8-10.2); NEUT % 92.7 % (42.8-82.8); PLATELET COUNT 395 K/MM3 (134-434); RBC 4.82 M/mm3 (4.00-5.60); RDW 13.7 % (11.9-15.9); WHITE BLOOD COUNT 21.5 K/mm3 (4.0-10.0)
[2020-11-04 07:27] LABS: POTASSIUM 5.5 mmol/L (3.5-5.1)
[2020-11-04 07:42] LABS: ALBUMIN 2.7 g/dl (3.4-5.0)
[2020-11-04 07:43] LABS: BLOOD UREA NITROGEN 26.7 mg/dL (7-18); MAGNESIUM 2.6 mg/dL (1.8-2.4)
[2020-11-04 07:44] LABS: CREATININE 1.3 mg/dL (0.55-1.3); PHOSPHOROUS 6.7 mg/dL (2.5-4.9)
[2020-11-04 07:46] LABS: BILIRUBIN,TOTAL 0.6 mg/dL (0.2-1); TOT PROT 7.2 g/dl (6.4-8.2)
[2020-11-04] MEDS: PROPOFOL 1,000,000 MCG/100 ML VIAL IVPB SCH ×4 (08:30→15:45)
[2020-11-04] MEDS: FENTANYL IVPB 500 MCG/100 ML BAG IVPB SCH ×2 (08:31→13:15)
[2020-11-04] MEDS: VECURONIUM BROMIDE 100 MG/100 ML BAG IVPB SCH ×3 (08:34→13:15)
[2020-11-04] MEDS ORDERED: DEXTROSE 5%-WATER - 50 ML IVPB ONE (08:51)
[2020-11-04] MEDS ORDERED: cefTRIAXone SODIUM 1 GM VIAL ONE (08:51)
[2020-11-04 09:07] LABS: ANISOCYTOSIS 1+; MACROCYTOSIS 0; PLATELET ESTIMATE NORMAL
[2020-11-04] MEDS: CEFTRIAXONE 1 GM in DEXTROSE 5%-WATER - 50 ML IVPB SCH (09:12)
[2020-11-04] MEDS: DEXAMETHASONE SOD PHOSPHATE 4 MG/1 ML VIAL IVPUSH SCH (09:16)
[2020-11-04] MEDS: ASCORBIC ACID 500 MG TABLET (FP) PO SCH ×2 (09:23→21:49)
[2020-11-04] MEDS: ZINC SULFATE 220 MG CAPSULE (FP) PO SCH (09:23)
[2020-11-04] MEDS: AZITHROMYCIN IVPB 500 MG/250 ML BAG IVPB SCH (09:24)
[2020-11-04] MEDS: FAMOTIDINE 20 MG TABLET PO SCH ×2 (09:24→21:49)
[2020-11-04] MEDS: ENOXAPARIN NA (PORCINE) 80 MG/0.8 ML DISP.SYRIN SQ SCH ×2 (09:47→21:18)
[2020-11-04] MEDS ORDERED: SODIUM ZIRCONIUM CYCLOSILICATE (LOKELMA) 5 GM PACKET PO ONE (12:05)
[2020-11-04] MEDS ORDERED: DEXAMETHASONE SOD PHOSPHATE 4 MG/1 ML VIAL IVPUSH ONE ×3 (12:07→22:00)
[2020-11-04] MEDS ORDERED: PANTOPRAZOLE SODIUM 40 MG VIAL IVPUSH SCH (12:15)
[2020-11-04] MEDS: SODIUM CHLORIDE 1,000 ML IV SCH (15:03)
[2020-11-04] MEDS: CHLORHEXIDINE GLUCONATE 4% CLEANSER FOR DECOLONIZATION TP SCH (21:18)
[2020-11-04] MEDS: MUPIROCIN 2% TOPICAL OINTMENT FOR DECOLONIZATION NS SCH (21:49)
[2020-11-05] MEDS ORDERED: ACETAMINOPHEN 1000 MG/100 ML VIAL (NON FORMULARY) IVPB ONE (06:13)
[2020-11-05] MEDS: PROPOFOL 1,000,000 MCG/100 ML VIAL IVPB SCH ×5 (06:18→19:00)
[2020-11-05 06:19] LABS: ALLENS TEST POSITIVE
[2020-11-05] MEDS: VECURONIUM BROMIDE 100 MG/100 ML BAG IVPB SCH (06:19)
[2020-11-05] MEDS: FENTANYL IVPB 500 MCG/100 ML BAG IVPB SCH (06:19)
[2020-11-05 06:22] LABS: VENT MODE A/C
[2020-11-05 06:27] LABS: ARTERIAL BLD GAS O2 SATURATION 90.1 mmHg (95-98); ARTERIAL BLOOD GAS BASE EXCESS -3.6 mmol/L (-2-2); ARTERIAL BLOOD GAS PO2 65.9 mmHg (80-100); ARTERIAL BLOOD GAS pH 7.272 (7.350-7.450)
[2020-11-05 06:28] LABS: VENT RATE 29
[2020-11-05 07:08] LABS: BASO % 0.2 % (0-2.0); EOS % 0.1 % (0-4.5); HEMATOCRIT 35.4 % (35.4-49); HEMOGLOBIN 11.8 GM/dL (11.7-16.9); LYMPH % 6.4 % (8-40); MCH 29.7 pg (25.7-33.7); MCHC 33.3 g/dl (32.0-35.9); MEAN PLT VOLUME 9.8 fl (7.5-11.1); NEUT % 88.3 % (42.8-82.8); PLATELET COUNT 315 K/MM3 (134-434); RBC 3.98 M/mm3 (4.00-5.60); RDW 13.3 % (11.9-15.9); WHITE BLOOD COUNT 8.8 K/mm3 (4.0-10.0)
[2020-11-05 07:25] LABS: POTASSIUM 5.6 mmol/L (3.5-5.1)
[2020-11-05 07:35] LABS: ALBUMIN 2.3 g/dl (3.4-5.0); CALCIUM 8.6 mg/dL (8.5-10.1)
[2020-11-05 07:38] LABS: CREATININE 3.5 mg/dL (0.55-1.3)
[2020-11-05 07:39] LABS: PHOSPHOROUS 5.9 mg/dL (2.5-4.9)
[2020-11-05 07:40] LABS: BILIRUBIN,TOTAL 0.8 mg/dL (0.2-1); TOT PROT 6.2 g/dl (6.4-8.2)
[2020-11-05 07:46] LABS: BLOOD UREA NITROGEN 62.5 mg/dL (7-18)
[2020-11-05] MEDS ORDERED: SODIUM ZIRCONIUM CYCLOSILICATE (LOKELMA) 5 GM PACKET PO ONE (08:48)
[2020-11-05] MEDS: FENTANYL NS IVPB 500 MCG/100 ML BAG IVPB SCH ×3 (09:00→19:00)
[2020-11-05] MEDS: ZINC SULFATE 220 MG CAPSULE (FP) PO SCH (09:21)
[2020-11-05] MEDS: ENOXAPARIN NA (PORCINE) 80 MG/0.8 ML DISP.SYRIN SQ SCH (09:21)
[2020-11-05] MEDS: FAMOTIDINE 20 MG TABLET PO SCH ×2 (09:21→21:16)
[2020-11-05] MEDS: DEXAMETHASONE SOD PHOSPHATE 4 MG/1 ML VIAL IVPUSH SCH (09:21)
[2020-11-05] MEDS: ASCORBIC ACID 500 MG TABLET (FP) PO SCH ×2 (09:22→21:16)
[2020-11-05] MEDS: MIDAZOLAM 100 MG in SODIUM CHLORIDE 100 ML IVPB SCH ×2 (10:00→22:00)
[2020-11-05] MEDS: MUPIROCIN 2% TOPICAL OINTMENT FOR DECOLONIZATION NS SCH ×2 (10:21→21:15)
[2020-11-05] MEDS: SODIUM CHLORIDE 1,000 ML IV SCH (16:55)
[2020-11-05 21:00] LABS: URINE APPEARANCE TURBID; URINE BILIRUBIN NEGATIVE (NEGATIVE); URINE COLOR YELLOW; URINE GLUCOSE (UA) NEGATIVE (NEGATIVE); URINE KETONE NEGATIVE (NEGATIVE); URINE LEUK ESTERASE NEGATIVE (NEGATIVE); URINE NITRITE NEGATIVE (NEGATIVE); URINE PROTEIN TRACE (NEGATIVE); URINE UROBILINOGEN 0.2 mg/dL (0.2-1.0)
[2020-11-05] MEDS: CHLORHEXIDINE GLUCONATE 4% CLEANSER FOR DECOLONIZATION TP SCH (21:15)
[2020-11-05] MEDS ORDERED: MIDAZOLAM 100 MG/100 ML MG IVPB ONE (21:33)
[2020-11-05] MEDS ORDERED: DEXAMETHASONE SOD PHOSPHATE 4 MG/1 ML VIAL IVPUSH ONE (22:00)
[2020-11-05] MEDS ORDERED: ENOXAPARIN NA (PORCINE) 80 MG/0.8 ML DISP.SYRIN SQ SCH (22:00)
[2020-11-06] MEDS: PROPOFOL 1,000,000 MCG/100 ML VIAL IVPB SCH ×6 (01:44→21:43)
[2020-11-06] MEDS: FENTANYL NS IVPB 500 MCG/100 ML BAG IVPB SCH ×6 (01:45→21:44)
[2020-11-06] MEDS: VECURONIUM BROMIDE 100 MG/100 ML BAG IVPB SCH ×2 (03:00→21:45)
[2020-11-06 06:08] LABS: ARTERIAL BLD GAS O2 SATURATION 93.9 mmHg (95-98); ARTERIAL BLOOD GAS BASE EXCESS -2.7 mmol/L (-2-2); ARTERIAL BLOOD GAS PO2 72.4 mmHg (80-100); ARTERIAL BLOOD GAS pH 7.352 (7.350-7.450)
[2020-11-06 06:09] LABS: ALLENS TEST POSITIVE
[2020-11-06 06:10] LABS: VENT MODE A/C
[2020-11-06 06:19] LABS: VENT RATE 29
[2020-11-06] MEDS: SODIUM CHLORIDE 1,000 ML IV SCH (06:27)
[2020-11-06 07:37] LABS: BASO % 0.1 % (0-2.0); HEMATOCRIT 31.7 % (35.4-49); HEMOGLOBIN 10.4 GM/dL (11.7-16.9); LYMPH % 7.2 % (8-40); MCH 29.5 pg (25.7-33.7); MCHC 32.9 g/dl (32.0-35.9); MEAN CELL VOLUME 89.5 fl (80-96); MEAN PLT VOLUME 9.9 fl (7.5-11.1); MONO % 10.7 % (3.8-10.2); PLATELET COUNT 287 K/MM3 (134-434); RBC 3.54 M/mm3 (4.00-5.60); RDW 13.4 % (11.9-15.9); WHITE BLOOD COUNT 8.2 K/mm3 (4.0-10.0)
[2020-11-06 07:44] LABS: POTASSIUM 5.4 mmol/L (3.5-5.1)
[2020-11-06 08:02] LABS: ALBUMIN 2.3 g/dl (3.4-5.0); BLOOD UREA NITROGEN 77.5 mg/dL (7-18); CALCIUM 8.4 mg/dL (8.5-10.1)
[2020-11-06 08:03] LABS: MAGNESIUM 3.1 mg/dL (1.8-2.4)
[2020-11-06 08:05] LABS: CREATININE 3.6 mg/dL (0.55-1.3); PHOSPHOROUS 6.8 mg/dL (2.5-4.9)
[2020-11-06 08:07] LABS: BILIRUBIN,TOTAL 0.6 mg/dL (0.2-1); TOT PROT 5.8 g/dl (6.4-8.2)
[2020-11-06] MEDS ORDERED: SODIUM ZIRCONIUM CYCLOSILICATE (LOKELMA) 5 GM PACKET PO ONE ×2 (08:53→22:00)
[2020-11-06] MEDS: ZINC SULFATE 220 MG CAPSULE (FP) PO SCH (09:31)
[2020-11-06] MEDS: MUPIROCIN 2% TOPICAL OINTMENT FOR DECOLONIZATION NS SCH ×2 (09:31→21:05)
[2020-11-06] MEDS: FAMOTIDINE 20 MG TABLET PO SCH ×2 (09:32→21:05)
[2020-11-06] MEDS: ASCORBIC ACID 500 MG TABLET (FP) PO SCH ×2 (09:33→21:04)
[2020-11-06] MEDS: ENOXAPARIN NA (PORCINE) 80 MG/0.8 ML DISP.SYRIN SQ SCH (09:44)
[2020-11-06] MEDS ORDERED: DEXAMETHASONE SOD PHOSPHATE 4 MG/1 ML VIAL IVPUSH SCH (10:00)
[2020-11-06] MEDS: methylPREDNISolone NA SUCC 40 MG/1 ML VIAL IVPUSH SCH (10:13)
[2020-11-06] MEDS ORDERED: MIDAZOLAM 100 MG/100 ML MG IVPB ONE ×2 (10:19→19:58)
[2020-11-06] MEDS: MIDAZOLAM 100 MG in SODIUM CHLORIDE 100 ML IVPB SCH ×2 (10:21→21:44)
[2020-11-06] MEDS: OCULAR LUBRICANT OPHTHALMIC OINTMENT 7 GM TUBE OU SCH ×2 (12:23→21:04)
[2020-11-06] MEDS: SODIUM CHLORIDE 0.45% 1,000 ML IV SCH ×2 (14:00→21:44)
[2020-11-06 15:43] LABS: ANISOCYTOSIS 0; MACROCYTOSIS 0; PLATELET ESTIMATE NORMAL
[2020-11-06] MEDS: CHLORHEXIDINE GLUCONATE 4% CLEANSER FOR DECOLONIZATION TP SCH (21:04)
[2020-11-07] MEDS: PROPOFOL 1,000,000 MCG/100 ML VIAL IVPB SCH ×4 (00:30→16:28)
[2020-11-07] MEDS ORDERED: fentaNYL CITRATE 250 MCG/5 ML VIAL ONE (03:16)
[2020-11-07] MEDS: FENTANYL NS IVPB 500 MCG/100 ML BAG IVPB SCH ×3 (03:30→16:28)
[2020-11-07 05:59] LABS: ARTERIAL BLD GAS O2 SATURATION 94.2 mmHg (95-98); ARTERIAL BLOOD GAS BASE EXCESS -3.6 mmol/L (-2-2); ARTERIAL BLOOD GAS PO2 77.3 mmHg (80-100); ARTERIAL BLOOD GAS pH 7.308 (7.350-7.450)
[2020-11-07 06:05] LABS: ALLENS TEST POSITIVE
[2020-11-07 06:06] LABS: VENT MODE A/C; VENT RATE 29
[2020-11-07 07:16] LABS: BASO % 0.1 % (0-2.0); EOS % 0.1 % (0-4.5); HEMATOCRIT 31.9 % (35.4-49); HEMOGLOBIN 10.8 GM/dL (11.7-16.9); LYMPH % 10.1 % (8-40); MCH 29.8 pg (25.7-33.7); MCHC 33.7 g/dl (32.0-35.9); MEAN CELL VOLUME 88.5 fl (80-96); MEAN PLT VOLUME 9.4 fl (7.5-11.1); MONO % 9.1 % (3.8-10.2); NEUT % 80.6 % (42.8-82.8); PLATELET COUNT 291 K/MM3 (134-434); RBC 3.61 M/mm3 (4.00-5.60); RDW 13.2 % (11.9-15.9); WHITE BLOOD COUNT 9.7 K/mm3 (4.0-10.0)
[2020-11-07 07:44] LABS: POTASSIUM 5.3 mmol/L (3.5-5.1)
[2020-11-07 07:48] LABS: ALBUMIN 2.3 g/dl (3.4-5.0); BLOOD UREA NITROGEN 78.2 mg/dL (7-18); MAGNESIUM 2.7 mg/dL (1.8-2.4)
[2020-11-07 07:51] LABS: CREATININE 2.8 mg/dL (0.55-1.3); PHOSPHOROUS 4.7 mg/dL (2.5-4.9)
[2020-11-07 07:53] LABS: BILIRUBIN,TOTAL 0.5 mg/dL (0.2-1); TOT PROT 5.9 g/dl (6.4-8.2)
[2020-11-07] MEDS ORDERED: MIDAZOLAM 100 MG/100 ML MG IVPB ONE ×2 (09:54→17:42)
[2020-11-07] MEDS: SODIUM CHLORIDE 0.45% 1,000 ML IV SCH ×2 (09:58→14:55)
[2020-11-07] MEDS: MIDAZOLAM 100 MG in SODIUM CHLORIDE 100 ML IVPB SCH (09:58)
[2020-11-07] MEDS: MUPIROCIN 2% TOPICAL OINTMENT FOR DECOLONIZATION NS SCH ×2 (10:40→21:34)
[2020-11-07] MEDS: OCULAR LUBRICANT OPHTHALMIC OINTMENT 7 GM TUBE OU SCH ×2 (10:40→21:35)
[2020-11-07] MEDS ORDERED: FENTANYL NS IVPB 500 MCG/100 ML BAG IVPB ONE (10:43)
[2020-11-07] MEDS: ENOXAPARIN NA (PORCINE) 80 MG/0.8 ML DISP.SYRIN SQ SCH (10:46)
[2020-11-07] MEDS: VECURONIUM BROMIDE 100 MG/100 ML BAG IVPB SCH (10:46)
[2020-11-07] MEDS: FAMOTIDINE 20 MG TABLET PO SCH ×2 (10:47→21:36)
[2020-11-07] MEDS: ASCORBIC ACID 500 MG TABLET (FP) PO SCH ×2 (10:47→21:35)
[2020-11-07] MEDS: ZINC SULFATE 220 MG CAPSULE (FP) PO SCH (10:47)
[2020-11-07] MEDS: methylPREDNISolone NA SUCC 40 MG/1 ML VIAL IVPUSH SCH (10:57)
[2020-11-07] MEDS: ACETAMINOPHEN 1000 MG/100 ML VIAL (NON FORMULARY) IVPB PRN ×2 (13:20→18:45)
[2020-11-07] MEDS: SODIUM ZIRCONIUM CYCLOSILICATE (LOKELMA) 5 GM PACKET PO SCH ×2 (14:54→21:35)
[2020-11-07] MEDS ORDERED: METOPROLOL TARTRATE 5 MG/5 ML VIAL IVPUSH ONE (16:22)
[2020-11-07] MEDS ORDERED: METOPROLOL TARTRATE 5 MG/5 ML VIAL ONE (16:24)
[2020-11-07] MEDS: CHLORHEXIDINE GLUCONATE 4% CLEANSER FOR DECOLONIZATION TP SCH (21:34)
[2020-11-07 22:13] VITALS: BMI 36.3
[2020-11-08] MEDS ORDERED: MIDAZOLAM 100 MG/100 ML MG IVPB ONE ×3 (02:39→22:21)
[2020-11-08] MEDS ORDERED: RAPID SEQUENCE INTUBATION KIT NR ONE (02:51)
[2020-11-08 06:37] LABS: ARTERIAL BLD GAS O2 SATURATION 93.6 mmHg (95-98); ARTERIAL BLOOD GAS BASE EXCESS -2.3 mmol/L (-2-2); ARTERIAL BLOOD GAS PO2 77.1 mmHg (80-100); ARTERIAL BLOOD GAS pH 7.277 (7.350-7.450)
[2020-11-08 06:38] LABS: ALLENS TEST POSITIVE; VENT MODE A/C
[2020-11-08 06:39] LABS: VENT RATE 29
[2020-11-08 07:19] LABS: BASO % 0.2 % (0-2.0); EOS % 0.3 % (0-4.5); HEMATOCRIT 32.2 % (35.4-49); HEMOGLOBIN 10.5 GM/dL (11.7-16.9); LYMPH % 7.1 % (8-40); MCHC 32.5 g/dl (32.0-35.9); MEAN CELL VOLUME 89.1 fl (80-96); MEAN PLT VOLUME 9.5 fl (7.5-11.1); MONO % 6.8 % (3.8-10.2); NEUT % 85.6 % (42.8-82.8); PLATELET COUNT 260 K/MM3 (134-434); RBC 3.62 M/mm3 (4.00-5.60); RDW 13.4 % (11.9-15.9)
[2020-11-08] MEDS: PROPOFOL 1,000,000 MCG/100 ML VIAL IVPB SCH ×2 (07:31→15:42)
[2020-11-08 07:39] LABS: POTASSIUM 5.4 mmol/L (3.5-5.1)
[2020-11-08 07:44] LABS: CALCIUM 8.3 mg/dL (8.5-10.1)
[2020-11-08 07:45] LABS: ALBUMIN 2.3 g/dl (3.4-5.0); BLOOD UREA NITROGEN 66.9 mg/dL (7-18); MAGNESIUM 2.7 mg/dL (1.8-2.4)
[2020-11-08 07:48] LABS: CREATININE 2.1 mg/dL (0.55-1.3)
[2020-11-08 07:49] LABS: BILIRUBIN,TOTAL 0.6 mg/dL (0.2-1); PHOSPHOROUS 4.3 mg/dL (2.5-4.9); TOT PROT 5.9 g/dl (6.4-8.2)
[2020-11-08] MEDS ORDERED: PT OWN MED DRAWER 7, Y5N ONE (09:06)
[2020-11-08] MEDS: MUPIROCIN 2% TOPICAL OINTMENT FOR DECOLONIZATION NS SCH (09:16)
[2020-11-08] MEDS: ENOXAPARIN NA (PORCINE) 80 MG/0.8 ML DISP.SYRIN SQ SCH (09:18)
[2020-11-08] MEDS: ZINC SULFATE 220 MG CAPSULE (FP) PO SCH (09:19)
[2020-11-08] MEDS: ASCORBIC ACID 500 MG TABLET (FP) PO SCH ×2 (09:20→22:11)
[2020-11-08] MEDS: FAMOTIDINE 20 MG TABLET PO SCH ×2 (09:20→22:11)
[2020-11-08] MEDS: methylPREDNISolone NA SUCC 40 MG/1 ML VIAL IVPUSH SCH (09:20)
[2020-11-08] MEDS: OCULAR LUBRICANT OPHTHALMIC OINTMENT 7 GM TUBE OU SCH ×2 (09:39→22:10)
[2020-11-08] MEDS: FENTANYL NS IVPB 500 MCG/100 ML BAG IVPB SCH (09:39)
[2020-11-08] MEDS: ACETAMINOPHEN 1000 MG/100 ML VIAL (NON FORMULARY) IVPB PRN (09:40)
[2020-11-08] MEDS: METOPROLOL TARTRATE 5 MG/5 ML VIAL IVPUSH PRN ×2 (10:15→14:54)
[2020-11-08] MEDS: MIDAZOLAM 100 MG in SODIUM CHLORIDE 100 ML IVPB SCH (11:14)
[2020-11-08] MEDS: VECURONIUM BROMIDE 100 MG/100 ML BAG IVPB SCH (11:32)
[2020-11-08] MEDS ORDERED: VANCOMYCIN 1 GRAM (PRE-DOCKED) 1,000 MG/250 ML BAG IVPB ONE (14:09)
[2020-11-08] MEDS ORDERED: PIPERACILLIN/TAZOBACTAM 3.375 GM VIAL IVPB ONE ×3 (14:49→23:34)
[2020-11-08] MEDS ORDERED: DEXTROSE 5%-WATER - 50 ML IVPB ONE ×3 (14:49→23:35)
[2020-11-08] MEDS: PIPERACILLIN/TAZOB 3.375 GM 3.375 GM in DEXTROSE 5%-WATER - 50 ML IVPB SCH ×2 (14:59→17:13)
[2020-11-08] MEDS ORDERED: ACETAMINOPHEN 1000 MG/100 ML VIAL (NON FORMULARY) IVPB PRN (15:02)
[2020-11-08] MEDS: SODIUM CHLORIDE 0.45% 1,000 ML IV SCH (15:27)
[2020-11-08] MEDS: AMINO ACIDS/PROTEIN HYDROLYS 30 ML LIQUID.PKT PO SCH (17:13)
[2020-11-08] MEDS: CHLORHEXIDINE GLUCONATE 4% CLEANSER FOR DECOLONIZATION TP SCH (22:10)
[2020-11-09] MEDS: METOPROLOL TARTRATE 5 MG/5 ML VIAL IVPUSH PRN ×2 (00:03→10:02)
[2020-11-09] MEDS: PIPERACILLIN/TAZOB 3.375 GM 3.375 GM in DEXTROSE 5%-WATER - 50 ML IVPB SCH ×3 (02:50→17:32)
[2020-11-09] MEDS: PROPOFOL 1,000,000 MCG/100 ML VIAL IVPB SCH ×2 (02:51→10:20)
[2020-11-09] MEDS: VECURONIUM BROMIDE 100 MG/100 ML BAG IVPB SCH (02:51)
[2020-11-09] MEDS ORDERED: MIDAZOLAM 100 MG/100 ML MG IVPB ONE ×2 (02:54→20:20)
[2020-11-09] MEDS: FENTANYL NS IVPB 500 MCG/100 ML BAG IVPB SCH ×2 (07:00→18:45)
[2020-11-09 08:08] LABS: BASO % 0.2 % (0-2.0); EOS % 0.9 % (0-4.5); HEMATOCRIT 33.2 % (35.4-49); HEMOGLOBIN 10.5 GM/dL (11.7-16.9); LYMPH % 4.8 % (8-40); MCH 28.8 pg (25.7-33.7); MCHC 31.7 g/dl (32.0-35.9); MEAN PLT VOLUME 9.3 fl (7.5-11.1); NEUT % 89.1 % (42.8-82.8); PLATELET COUNT 284 K/MM3 (134-434); RBC 3.65 M/mm3 (4.00-5.60); RDW 13.8 % (11.9-15.9); WHITE BLOOD COUNT 21.5 K/mm3 (4.0-10.0)
[2020-11-09 08:27] LABS: POTASSIUM 5.4 mmol/L (3.5-5.1)
[2020-11-09 08:29] LABS: ALBUMIN 2.1 g/dl (3.4-5.0); BLOOD UREA NITROGEN 58.8 mg/dL (7-18); CALCIUM 8.5 mg/dL (8.5-10.1)
[2020-11-09 08:33] LABS: CREATININE 2.2 mg/dL (0.55-1.3); PHOSPHOROUS 4.7 mg/dL (2.5-4.9)
[2020-11-09 08:34] LABS: BILIRUBIN,TOTAL 1.1 mg/dL (0.2-1); TOT PROT 6.2 g/dl (6.4-8.2)
[2020-11-09 08:46] LABS: MAGNESIUM 2.3 mg/dL (1.8-2.4)
[2020-11-09 09:39] LABS: ANISOCYTOSIS 0; MACROCYTOSIS 0; PLATELET ESTIMATE NORMAL
[2020-11-09] MEDS ORDERED: PIPERACILLIN/TAZOBACTAM 3.375 GM VIAL IVPB ONE ×2 (09:49→17:28)
[2020-11-09] MEDS ORDERED: DEXTROSE 5%-WATER - 50 ML IVPB ONE ×2 (09:49→17:29)
[2020-11-09] MEDS: OCULAR LUBRICANT OPHTHALMIC OINTMENT 7 GM TUBE OU SCH (10:30)
[2020-11-09] MEDS: methylPREDNISolone NA SUCC 40 MG/1 ML VIAL IVPUSH SCH (10:30)
[2020-11-09] MEDS: ENOXAPARIN NA (PORCINE) 80 MG/0.8 ML DISP.SYRIN SQ SCH (10:30)
[2020-11-09] MEDS: MIDAZOLAM 100 MG in SODIUM CHLORIDE 100 ML IVPB SCH (10:47)
[2020-11-09] MEDS ORDERED: LABETALOL HCL 5 MG/1 ML (100MG/20 ML VIAL) IVPUSH ONE (10:57)
[2020-11-09] MEDS: ZINC SULFATE 220 MG CAPSULE (FP) PO SCH (11:00)
[2020-11-09] MEDS: AMINO ACIDS/PROTEIN HYDROLYS 30 ML LIQUID.PKT PO SCH ×2 (11:00→17:39)
[2020-11-09] MEDS ORDERED: LABETALOL HCL 200 MG TABLET (FP) PO SCH (11:00)
[2020-11-09] MEDS: ASCORBIC ACID 500 MG TABLET (FP) PO SCH (11:00)
[2020-11-09] MEDS: FAMOTIDINE 20 MG TABLET PO SCH (11:01)
[2020-11-09] MEDS ORDERED: LABETALOL HCL 5 MG/1 ML (100MG/20 ML VIAL) ONE (11:07)
[2020-11-09] MEDS ORDERED: VANCOMYCIN 1 GRAM (PRE-DOCKED) 1,000 MG/250 ML BAG IVPB ONE (13:59)
[2020-11-09] MEDS ORDERED: FUROSEMIDE 40 MG/4 ML INJECTABLE VIAL IVPUSH ONE (14:10)
[2020-11-09] MEDS: SODIUM ZIRCONIUM CYCLOSILICATE (LOKELMA) 5 GM PACKET PO SCH ×2 (14:33→22:56)
[2020-11-09] MEDS: SODIUM CHLORIDE 0.45% 1,000 ML IV SCH (14:38)
[2020-11-09 15:58] LABS: ARTERIAL BLD GAS O2 SATURATION 70.8 mmHg (95-98); ARTERIAL BLOOD GAS BASE EXCESS -7.2 mmol/L (-2-2); ARTERIAL BLOOD GAS PO2 48.7 mmHg (80-100)
[2020-11-09 15:59] LABS: ALLENS TEST POSITIVE
[2020-11-09 16:00] LABS: VENT MODE V AC; VENT RATE 32
[2020-11-09 16:01] LABS: ARTERIAL BLOOD GAS pH 7.135 (7.350-7.450)
[2020-11-09 16:56] VITALS: TEMP 98.8
[2020-11-09 17:54] LABS: ARTERIAL BLOOD GAS BASE EXCESS -6.4 mmol/L (-2-2); ARTERIAL BLOOD GAS PO2 54.6 mmHg (80-100)
[2020-11-09 17:58] LABS: VENT MODE V-AC; VENT RATE 35
[2020-11-09 18:05] LABS: INR 1.12 (0.83-1.09); PROTHROMBIN TIME (PATIENT) 13.7 SEC (9.7-13.0)
[2020-11-09 18:08] LABS: ACTIVATED PTT 29.8 SECONDS (25.2-36.5)
[2020-11-09] MEDS ORDERED: HEPARIN NA (PORCINE) 5,000 UNITS/ML 1ML VIAL IVPUSH ONE (19:46)
[2020-11-09] MEDS ORDERED: CALCIUM GLUCONATE 10% - 1,000 MG/10 ML VIAL IVPUSH ONE (19:47)
[2020-11-09] MEDS ORDERED: LIDOCAINE HCL 1%, 10 MG/ML (20ML VIAL) SQ ONE (19:48)
[2020-11-09] MEDS ORDERED: VASOPRESSIN 40 UNITS in SODIUM CHLORIDE 98 ML IVPB SCH (20:00)
[2020-11-09 20:04] LABS: ARTERIAL BLD GAS O2 SATURATION 77.5 mmHg (95-98); ARTERIAL BLOOD GAS BASE EXCESS -4.4 mmol/L (-2-2); ARTERIAL BLOOD GAS PO2 56.7 mmHg (80-100)
[2020-11-09 20:13] LABS: ARTERIAL BLOOD GAS pH 7.113 (7.350-7.450)
[2020-11-09] MEDS ORDERED: CALCIUM GLUCONATE 10% - 1,000 MG/10 ML VIAL ONE (20:23)
[2020-11-09] MEDS ORDERED: NOREPINEPHRINE BITARTRATE 8,000 MCG/500 ML BAG IVPB ONE (20:23)
[2020-11-10 00:35] VITALS: BP 121/76; PULSE 93
[2020-11-10] MEDS ORDERED: ENOXAPARIN NA (PORCINE) 40 MG/0.4 ML DISP.SYRIN SQ SCH (10:00)
== END 2020-11-09 22:35 | disposition short-term general hospital (02) | DRG 207 ==
LOC: FER 13:13 → J4W 20:46 → JICU 11-03 11:25
PROVIDERS: ADMIT Internal Medicine; ATTEND Internal Medicine Pulmonary Disease
PROC: 5A1955Z Respiratory Ventilation, Greater than 96 Consecutive Hours (ICD-10-PCS; principal; 2020-11-04)
PROC: 0CHY7BZ Insertion of Airway into Mouth and Throat, Via Natural or Artificial Opening (ICD-10-PCS; 2020-11-04)
PROC: 0W9B30Z Drainage of Left Pleural Cavity with Drainage Device, Percutaneous Approach (ICD-10-PCS; 2020-11-04)
PROC: 05HN33Z Insertion of Infusion Device into Left Internal Jugular Vein, Percutaneous Approach (ICD-10-PCS; 2020-11-09)
PROC: B544ZZA Ultrasonography of Left Jugular Veins, Guidance (ICD-10-PCS; 2020-11-09)
PROC: 4A133B1 Monitoring of Arterial Pressure, Peripheral, Percutaneous Approach (ICD-10-PCS; 2020-11-09)
PROC: 4A133J1 Monitoring of Arterial Pulse, Peripheral, Percutaneous Approach (ICD-10-PCS; 2020-11-09)
DX: U07.1 COVID-19 (principal); J12.82 Pneumonia due to coronavirus disease 2019; J80 Acute respiratory distress syndrome; J93.9 Pneumothorax, unspecified; N17.9 Acute kidney failure, unspecified; R55 Syncope and collapse; E86.0 Dehydration; E87.5 Hyperkalemia; R10.10 Upper abdominal pain, unspecified; E66.9 Obesity, unspecified; Z68.36 Body mass index [BMI] 36.0-36.9, adult; D72.829 Elevated white blood cell count, unspecified
CPT/HCPCS: 31500; 36415; 36600; 70450-TC; 71045-TC-FY; 71275-TC; 80053; 80061; 81003; 81015; 82248; 82436; 82550; 82553; 82565; 82728; 82803; 83036; 83605; 83615; 83721; 83735; 84100; 84133; 84300; 84478; 84484; 85025; 85027; 85379; 85610; 85651; 85730; 86140; 86769; 86850; 86900; 86901; 87040; 87070; 87086; 87186; 87205; 87804; 87899; 93005; 93970-TC; 94002; 94660; 99291; C9803; G0480; J0131; J1100; J1644; Q2036; U0003